=== PATIENT | female | born 1935 | race Caucasian/White ===

== ENCOUNTER 2019-01-31 05:44 | Emergency (ER) | payer BC, MEDICARE ==
[2019-01-31] MEDS ORDERED: Norepinephrine 8 MG/0.9% NS 250 ML ONE (05:52)
[2019-01-31] MEDS ORDERED: Insulin Regular 300 UNITS/3 ML VIAL ONE (05:58)
[2019-01-31 06:09] LABS: INR-International Normal Ratio 1.5; Prothrombin Time 18.5 SEC (12.0-14.7)
[2019-01-31 06:10] LABS: PTT 60.5 SEC (22.9-36.1)
[2019-01-31 06:14] LABS: ALT (SGPT) 14 U/L (8-55); AST (SGOT) 38 U/L (5-34); Alkaline Phosphatase 92 U/L (40-150); Anion Gap 25 mmol/L (10-20); BUN (Urea Nitrogen) 20 mg/dL (9.8-20.1); Bilirubin, Total 0.4 mg/dL (0.2-1.2); Calc. Creatinine Clearance 0 mL/min (70-130); Calcium 8.4 mg/dL (7.8-10.44); Carbon Dioxide 18 mmol/L (23-31); Chloride 103 mmol/L (98-107); Estimated GFR-MDRD 38; Globulin 2.5 g/dL (2.4-3.5); Glucose 239 mg/dL (83-110); Potassium 4.5 mmol/L (3.5-5.1); Protein, Total 5.5 g/dL (6.0-8.3); Sodium 141 mmol/L (136-145)
[2019-01-31 06:20] LABS: Hemoglobin 10.5 g/dL (12.0-16.0); MDiff Complete? YES; Mean Corpuscular HGB CONC 29.3 g/dL (32.0-36.0); Mean Corpuscular Hemoglobin 28.2 pg (27.0-31.0); Mean Corpuscular Volume 96.2 fL (78.0-98.0); Mean Platelet Volume 6.6 fL (7.4-10.4); Platelet Count 185 thou/uL (130-400); RBC Distribution Width 16.7 % (11.5-14.5); Red Blood Cell (RBC) Count 3.72 mill/uL (4.20-5.40)
[2019-01-31 06:21] LABS: Band 2 % (5-11); Eosinophils 1 % (0-10); Lymphocytes 61 % (21-51); Monocytes 4 % (0-10); Neutrophil 32 % (42-75); Platelet Morphology Comment Appears Adequate
--- NOTE | 2019-01-31 09:03 | RAD ---
SINGLE VIEW OF THE CHEST: COMPARISON: None. HISTORY: CPR in progress. Respiratory failure. FINDINGS: A single view of the chest shows a normal-size cardiomediastinal silhouette. A pacemaker is seen wit h its leads in the right atrium and ventricle. An endotracheal tube is seen in good position with it s tip below the lower tip of the clavicles. There is no evidence of consolidation, mass, or pleural effusion. Increased interstitial lung markings are present. IMPRESSION: Appropriate position of the endotracheal tube. POS: OLEG
[2019-02-01] MEDS ORDERED: Dextrose 50% Abboject 50 ML SYRINGE ONE (16:02)
[2019-02-01] MEDS ORDERED: EPINEPHrine 1 MG/ML AMP ONE (16:02)
[2019-02-01] MEDS ORDERED: Sodium Bicarb 50 MEQ/50 ML Abboject 8.4% SYRINGE ONE (16:02)
== END 2019-01-31 06:25 | disposition short-term general hospital (02) ==
LOC: NAV ERS 05:44
DX: I46.9 Cardiac arrest, cause unspecified (principal); T68.XXXA Hypothermia, initial encounter
CPT/HCPCS: 36415; 36556; 51702; 71045; 80053; 82550; 82553; 83605; 83880; 84484; 85025; 85379; 85610; 85730; 92950; 94760; 96374; 96375; J0171; J1815